=== PATIENT | female | born 1945 | race Caucasian/White ===

== ENCOUNTER 2017-05-03 10:40 | Day surgery (SDC) | payer MEDICARE ==
[2017-05-03] MEDS ORDERED: Propofol 10 mg/ml Inj (20 ML) ONE (11:19)
[2017-05-03] MEDS ORDERED: Lactated Ringer's 500 ML IV ONE (11:49)
[2017-05-03 11:57] VITALS: O2SAT 100
[2017-05-03 13:08] VITALS: BP 113/93; PULSE 53; RESP 13; TEMP 98
== END 2017-05-03 13:12 | disposition home or self-care (01) ==
LOC: H.ENDO 10:40
PROVIDERS: ATTEND Internal Medicine Gastroenterology
DX: Z12.11 Encounter for screening for malignant neoplasm of colon (principal); K57.30 Diverticulosis of large intestine without perforation or abscess without bleeding; K64.8 Other hemorrhoids
CPT/HCPCS: 45378; J2001; J2704; J7120